=== PATIENT | male | born 1990 | race Two or more races ===

== ENCOUNTER 2017-06-01 13:01 | Emergency (ER) | payer OTHER ==
[~2017-06-01] VITALS: Ht 180.3 cm; Wt 77.1 kg
--- NOTE | 2017-06-01 13:03 | NUR ---
[id number], bibra for possible new onset seizure, tongue trauma noted per patient report he was playing soccer and hit his head on the ground. RR is even and unlabored with nad noted. skin is warm and dry. Dr Palomo at [facility] for eval.
--- NOTE | 2017-06-01 13:12 | NUR ---
PT TAKEN TO CT
[2017-06-01 14:11] VITALS: BP 132/77
--- NOTE | 2017-06-01 14:11 | NUR ---
Patient discharged to home in stable condition. Written and verbal after care instructions given. Patient verbalizes understanding of instruction.
== END 2017-06-01 14:13 | disposition home or self-care (01) ==
LOC: ER 13:05
DX: S09.8XXA Other specified injuries of head, initial encounter (principal); W18.39XA Other fall on same level, initial encounter; Y93.89 Activity, other specified; Y92.89 Other specified places as the place of occurrence of the external cause; Y99.8 Other external cause status
CPT/HCPCS: 70450; 99284; A4606; Z7610